=== PATIENT | female | born 1965 | race Caucasian/White ===

== ENCOUNTER → 2017-02-13 | Outpatient (CLI) | payer OTHER | LOC: FIMAGING 10:56 | PROVIDERS: ATTEND Internal Medicine | DX: Z12.31 Encounter for screening mammogram for malignant neoplasm of breast (principal) | CPT/HCPCS: G0202 ==

== ENCOUNTER → 2017-05-28 | Outpatient (CLI) | payer OTHER | LOC: FIMAGING 13:44 | PROVIDERS: ATTEND Midwife | DX: R10.2 Pelvic and perineal pain (principal) ==

== ENCOUNTER → 2018-02-16 | Outpatient (CLI) | payer OTHER | LOC: FIMAGING 14:24 | PROVIDERS: ATTEND Internal Medicine | DX: Z12.31 Encounter for screening mammogram for malignant neoplasm of breast (principal) ==

== ENCOUNTER → 2019-02-18 | Outpatient (CLI) | payer OTHER | LOC: FIMAGING 13:19 | PROVIDERS: ATTEND Internal Medicine | DX: Z12.31 Encounter for screening mammogram for malignant neoplasm of breast (principal); Z80.3 Family history of malignant neoplasm of breast ==